=== PATIENT | female | born 1970 | race Caucasian/White ===

== ENCOUNTER 2024-02-15 11:56 | Observation (INO) ==
[2024-02-15] MEDS: NS 1,000 ML IV 1,000 ML IV SCH (15:20)
[2024-02-15 15:48] LABS: BASOPHILS # (AUTO) 0.1 X10^3/uL (0.0-0.1); EOSINOPHILS # (AUTO) 0.1 x10^3/uL (0.0-0.2); MONOCYTES # (AUTO) 0.4 x10^3/uL (0.3-0.8)
[2024-02-15 15:52] LABS: BASOPHILS % (AUTO) 0.9 % (0.2-1.0); EOSINOPHILS % (AUTO) 0.5 % (0.9-2.9); LYMPHOCYTES # (AUTO) 1.5 X10^3/uL (1.3-2.9); LYMPHOCYTES % (AUTO) 15.9 % (21.0-51.0); MEAN CORPUSCULAR HGB CONC 32.3 g/dL (33.0-35.0); MEAN CORPUSCULAR VOLUME 77.2 fL (80.0-100.0); MEAN PLATELET VOLUME 6.6 fL (7.4-11.0); MONOCYTES % (AUTO) 4.2 % (0.0-13.0); NEUTROPHILS # (AUTO) 7.3 x10^3/uL (2.2-4.8); NEUTROPHILS % (AUTO) 78.5 % (42.0-75.0); PLATELET COUNT 398 X10^3/uL (150.0-450.0); RED BLOOD COUNT 2.47 X10^6/uL (3.5-5.4); RED CELL DISTRIBUTION WIDTH 20.8 % (11.6-16.5); WHITE BLOOD COUNT 9.3 X10^3/uL (3.6-10.0)
[2024-02-15 16:03] LABS: HEMATOCRIT 19.1 % (36.0-47.0)
[2024-02-15 16:12] LABS: ALANINE AMINOTRANSFERASE 11 Units/L (12-78); ALBUMIN 2.3 g/dL (3.4-5.0); ALKALINE PHOSPHATASE 112 Units/L (46-116); BLOOD UREA NITROGEN 7 mg/dL (7-18); CALCIUM 7.7 mg/dL (8.5-10.1); CARBON DIOXIDE 30.8 mmol/L (21-32); CHLORIDE 95 mmol/L (98-107); COR CA(FOR HYPOALB) 9.1 mg/dL (8.5-10.1); FREE T4 (FREE THYROXINE) 0.46 ng/dL (0.76-1.46); GLUCOSE 98 mg/dL (65-99); SODIUM 132 mmol/L (136-145); TOTAL PROTEIN 5.8 g/dL (6.4-8.2); TSH (3RD GENERATION) 91.669 uIU/mL (0.358-3.74); eGFR NON BLACK RACES > 60 (>60)
[2024-02-15 16:19] LABS: POTASSIUM 2.9 mmol/L (3.5-5.1)
[2024-02-15 16:27] LABS: HEMOGLOBIN 6.2 g/dL (12.0-16.0)
[2024-02-15 16:28] LABS: ANISOCYTOSIS 1+; HYPOCHROMASIA SLIGHT; MICROCYTOSIS SLIGHT; PLATELET MORPHOLOGY COMMENT NORMAL (NORMAL)
[2024-02-15 16:29] LABS: STOMATOCYTES PRESENT
[2024-02-15 16:36] LABS: IRON 15 ug/dL (50-175)
[2024-02-15] MEDS ORDERED: PROVENTIL NEB TX 0.083% 2.5MG/ 3ML NEB PRN (16:37)
[2024-02-15 16:46] LABS: ASPARTATE AMINO TRANSFERASE 13 Units/L (15-37)
[2024-02-15] MEDS ORDERED: CONSULT PHARMACY - POTASSIUM & MAGNESIUM XX SCH (17:00)
[2024-02-15 17:21] VITALS: BMI 20.3
[2024-02-15] MEDS: NS 500 ML IV 500 ML IV ONE ×2 (18:45→23:00)
[2024-02-15] MEDS: MAG-OX TAB PO SCH (20:28)
[2024-02-15] MEDS: ELAVIL PO SCH (20:28)
[2024-02-15] MEDS: COLACE CAP 100 MG PO SCH (20:28)
[2024-02-15] MEDS: KLOR-CON PO SCH (20:29)
[2024-02-15] MEDS: ROXICODONE TAB 15 MG PO PRN (22:13)
[2024-02-15] MEDS: ALPRAZOLAM ODT PO PRN (22:14)
[2024-02-15] MEDS: PROTONIX TAB 40 MG PO SCH (22:14)
[2024-02-15] MEDS: NEURONTIN CAP 300 MG PO SCH (22:14)
[2024-02-16 02:45] LABS: HEMATOCRIT 26.3 % (36.0-47.0); HEMOGLOBIN 8.6 g/dL (12.0-16.0)
[2024-02-16 05:06] LABS: BASOPHILS # (AUTO) 0.1 X10^3/uL (0.0-0.1); BASOPHILS % (AUTO) 0.8 % (0.2-1.0); EOSINOPHILS # (AUTO) 0.1 x10^3/uL (0.0-0.2); EOSINOPHILS % (AUTO) 1.1 % (0.9-2.9); HEMATOCRIT 26.7 % (36.0-47.0); HEMOGLOBIN 8.7 g/dL (12.0-16.0); LYMPHOCYTES # (AUTO) 1.3 X10^3/uL (1.3-2.9); MEAN CORPUSCULAR HEMOGLOBIN 26.7 pg (27.0-34.0); MEAN CORPUSCULAR HGB CONC 32.5 g/dL (33.0-35.0); MEAN CORPUSCULAR VOLUME 82.1 fL (80.0-100.0); MEAN PLATELET VOLUME 6.7 fL (7.4-11.0); MONOCYTES # (AUTO) 0.6 x10^3/uL (0.3-0.8); MONOCYTES % (AUTO) 8.1 % (0.0-13.0); NEUTROPHILS # (AUTO) 5.1 x10^3/uL (2.2-4.8); PLATELET COUNT 321 X10^3/uL (150.0-450.0); RED BLOOD COUNT 3.26 X10^6/uL (3.5-5.4); RED CELL DISTRIBUTION WIDTH 19.4 % (11.6-16.5); WHITE BLOOD COUNT 7.1 X10^3/uL (3.6-10.0)
[2024-02-16 05:22] LABS: ALANINE AMINOTRANSFERASE 12 Units/L (12-78); ALBUMIN 1.9 g/dL (3.4-5.0); ALKALINE PHOSPHATASE 99 Units/L (46-116); BLOOD UREA NITROGEN 4 mg/dL (7-18); CALCIUM 7.1 mg/dL (8.5-10.1); CARBON DIOXIDE 28.6 mmol/L (21-32); CHLORIDE 101 mmol/L (98-107); COR CA(FOR HYPOALB) 8.8 mg/dL (8.5-10.1); CREATININE 0.59 mg/dL (0.55-1.02); GLUCOSE 83 mg/dL (65-99); MAGNESIUM 1.7 mg/dL (2.0-2.9); POTASSIUM 3.4 mmol/L (3.5-5.1); SODIUM 135 mmol/L (136-145); TOTAL PROTEIN 4.9 g/dL (6.4-8.2); eGFR NON BLACK RACES > 60 (>60)
[2024-02-16] MEDS: SYNTHROID 175 mcg TAB PO SCH (05:31)
[2024-02-16 05:49] LABS: ASPARTATE AMINO TRANSFERASE 16 Units/L (15-37)
[2024-02-16] MEDS: ZOFRAN INJ 4 MG VIAL IVP PRN (06:17)
[2024-02-16] MEDS ORDERED: CONSULT PHARMACY - POTASSIUM & MAGNESIUM XX SCH (07:00)
--- NOTE | 2024-02-16 07:40 | RAD ---
EXAMINATION:CHEST, 1 VIEWHISTORY:SYMPTOMATIC ANEMIA, COPD; .COMPARISON STUDY:None.TECHNIQUE:A single view of the chest was obtained.FINDINGS:. Heart size is normal. No acute infiltrates. There is no pneumothorax. Hilar and mediastinal structures and bony structures are unremarkable. EKG leads overlie the chest.IMPRESSION:No acute process in the chest.THIS IS AN ELECTRONICALLY VERIFIED FINAL REPORT02/16/2024 7:34 AM - Electronically signed by Elías Rodriguez MD
[2024-02-16] MEDS ORDERED: LIORESAL PO PRN (08:20)
[2024-02-16 09:44] VITALS: BP 131/81; TEMP 97.9
[2024-02-16] MEDS: MAG-OX TAB PO SCH (09:59)
[2024-02-16] MEDS: CRESTOR TAB 10 MG PO SCH (09:59)
[2024-02-16] MEDS: K-DUR TAB 20 MEQ PO SCH (10:00)
[2024-02-16 12:17] VITALS: PULSE 83; O2SAT 100
[2024-02-16 13:18] VITALS: RESP 14
--- NOTE | 2024-02-16 15:30 | DR.H&P ---
H&P History & Physical for Day of: H&P Date: 02/15/24 Chief Complaint Chief Complaint: weakness History of Present Illness History of Present Illness: Pt is a 53-year-old female with a past medical history of hypertension, hypothyroidism, COPD (uses 2 L nasal cannula), presenting with weakness and fatigue. She reports that has been going on for the past month. She also states she has a history of anemia and that is usually when her hemoglobin is low she feels like this. Labs/imaging: WBC 9.3, hemoglobin 6.2, platelets 398, sodium 132, potassium 2.9, creatinine 0.90, glucose 98, TSH 91, free T4 0.46. Patient was admitted for symptomatic anemia. She was ordered 2 units packed red blood cells to be transfused. Will continue to trend and monitor hemoglobin. Consult general surgery-Dr Alex, order anemia panel and fecal occult. No signs of active bleeding. She also had acute hypokalemia and hypomagnesemia. Will replete potassium per protocol. Start on IV fluids normal saline at 75 mL/h. Restart home medications. Will also increase Synthroid to 175 mcg. Continue closely monitor and follow-up labs. Past Medical History Past Medical History: Anemia, COPD, Migraines, Hypertension and Hypothyroidism Past Surgical History Surgical History: Appendectomy, Cholecystectomy, Hysterectomy and Tonsillectomy Family History Family Medical History: Diabetes Mellitus, Cancer, [place], Coronary Artery Disease and Hypertension Social History Does patient currently use any type of tobacco product: Yes Have you used tobacco products in the last 12 months: Yes Type of Tobacco Use: Cigarettes Alcohol Use: None Drug Use: None Medications Home Medications: Home Medications Medication Instructions Recorded Confirmed Type alprazolam 0.5 mg tablet 0.5 mg PO TID PRN 02/15/24 02/15/24 History Allergies Allergies Allergy/AdvReac Type Severity Reaction Status Date / Time No Known Allergies Allergy Verified 02/11/24 11:39 Labs 02/16/24 04:06 02/16/24 04:06 Labs: Laboratory WBC 7.1 X10^3/uL (3.6-10.0) 02/16/24 04:06 RBC 3.26 X10^6/uL (3.5-5.4) L 02/16/24 04:06 Hgb 8.7 g/dL (12.0-16.0) L 02/16/24 04:06 Hct 26.7 % (36.0-47.0) L 02/16/24 04:06 MCV 82.1 fL (80.0-100.0) 02/16/24 04:06 MCH 26.7 pg (27.0-34.0) L 02/16/24 04:06 MCHC 32.5 g/dL (33.0-35.0) L 02/16/24 04:06 RDW 19.4 % (11.6-16.5) H 02/16/24 04:06 Plt Count 321 X10^3/uL (150.0-450.0) 02/16/24 04:06 Plt Count Comment Adequate (ADEQUATE) 02/15/24 15:37 MPV 6.7 fL (7.4-11.0) L 02/16/24 04:06 Neut % (Auto) 72.0 % (42.0-75.0) 02/16/24 04:06 Lymph % (Auto) 18.0 % (21.0-51.0) L 02/16/24 04:06 [place] % (Auto) 8.1 % (0.0-13.0) 02/16/24 04:06 Eos % (Auto) 1.1 % (0.9-2.9) 02/16/24 04:06 Baso % (Auto) 0.8 % (0.2-1.0) 02/16/24 04:06 Neut # (Auto) 5.1 x10^3/uL (2.2-4.8) H 02/16/24 04:06 Lymph # (Auto) 1.3 X10^3/uL (1.3-2.9) 02/16/24 04:06 [place] # (Auto) 0.6 x10^3/uL (0.3-0.8) 02/16/24 04:06 Eos # (Auto) 0.1 x10^3/uL (0.0-0.2) 02/16/24 04:06 Baso # (Auto) 0.1 X10^3/uL (0.0-0.1) 02/16/24 04:06 Absolute Nucleated RBC 0.1 /100WBC 02/16/24 04:06 Plt Morphology Comment Normal (NORMAL) 02/15/24 15:37 RBC Morphology Abnormal (NORMAL) A 02/15/24 15:37 Hypochromasia Slight A 02/15/24 15:37 Anisocytosis 1+ A 02/15/24 15:37 Microcytosis Slight A 02/15/24 15:37 Stomatocytes Present 02/15/24 15:37 Sodium 135 mmol/L (136-145) L 02/16/24 04:06 Corrected Sodium TNP 02/16/24 04:06 Potassium 3.4 mmol/L (3.5-5.1) L 02/16/24 04:06 Chloride 101 mmol/L (98-107) 02/16/24 04:06 Carbon Dioxide 28.6 mmol/L (21-32) 02/16/24 04:06 BUN 4 mg/dL (7-18) L 02/16/24 04:06 Creatinine 0.59 mg/dL (0.55-1.02) 02/16/24 04:06 Est GFR (MDRD) Af Amer > 60 (>60) 02/16/24 04:06 Est GFR (MDRD) Non-Af > 60 (>60) 02/16/24 04:06 Glucose 83 mg/dL (65-99) 02/16/24 04:06 Calcium 7.1 mg/dL (8.5-10.1) L 02/16/24 04:06 Corrected Calcium 8.8 mg/dL (8.5-10.1) 02/16/24 04:06 Magnesium 1.7 mg/dL (2.0-2.9) L 02/16/24 04:06 Iron 15 ug/dL (50-175) L 02/15/24 15:37 Transferrin 276 mg/dL (202-364) 02/15/24 15:37 Ferritin 9 ng/mL (8-252) 02/15/24 15:37 Total Bilirubin 0.30 mg/dL (0.2-1.0) 02/16/24 04:06 AST 16 Units/L (15-37) 02/16/24 04:06 ALT 12 Units/L (12-78) 02/16/24 04:06 Alkaline Phosphatase 99 Units/L (46-116) 02/16/24 04:06 Total Protein 4.9 g/dL (6.4-8.2) L 02/16/24 04:06 Albumin 1.9 g/dL (3.4-5.0) L 02/16/24 04:06 Globulin 3.0 g/dL (2.5-4.5) 02/16/24 04:06 Albumin/Globulin Ratio 0.6 Ratio (1.1-2.1) L 02/16/24 04:06 Vitamin B12 337 pg/mL (193-986) 02/15/24 15:37 Free T4 0.46 ng/dL (0.76-1.46) L 02/15/24 15:37 TSH 3rd Generation 91.669 uIU/mL (0.358-3.74) H 02/15/24 15:37 Blood Type O POSITIVE 02/15/24 16:08 Blood Type O POSITIVE 02/15/24 16:08 Antibody Screen Negative 02/15/24 16:08 Crossmatch See Detail 02/15/24 16:08 Review of Systems Constitutional: Weakness Eyes: No Symptoms Reported ENT: No Symptoms Reported Respiratory: Shortness of Breath (chronic) Cardiovascular: No Symptoms Reported Gastrointestinal: No Symptoms Reported Genitourinary: No Symptoms Reported Musculoskeletal: No Symptoms Reported Skin: No Symptoms Reported Neurological: No Symptoms Reported Physical Exam Vital Signs: Vital Signs Temperature 97.9 F Temperature 97.6 F Pulse Rate 100 Pulse Rate 84 Pulse Rate 86 Pulse Rate 90 Pulse Rate 91 Pulse Rate 80 Pulse Rate 76 Pulse Rate 82 Respiratory Rate 22 Respiratory Rate 24 Respiratory Rate 20 Respiratory Rate 19 Respiratory Rate 13 Respiratory Rate 13 Respiratory Rate 13 Respiratory Rate 12 Respiratory Rate 18 Blood Pressure 131/81 Blood Pressure 130/85 Blood Pressure 137/63 Blood Pressure 128/69 Blood Pressure 125/70 O2 Sat by Pulse Oximetry 99 O2 Sat by Pulse Oximetry 100 O2 Sat by Pulse Oximetry 100 O2 Sat by Pulse Oximetry 99 O2 Sat by Pulse Oximetry 98 O2 Sat by Pulse Oximetry 99 O2 Sat by Pulse Oximetry 99 O2 Sat by Pulse Oximetry 98 Oriented: Normal Eyes: Normal Ear: Normal Nose: Normal Throat: Normal Respiratory: Diminished Throughout Cardiovascular: Normal : Normal Auscultation: Bowel Sounds: Normal Palpation: Normal Tenderness: Normal Skin: Normal Musculoskeletal: Normal Psychiatric: Normal Mood Description: Calm and Appropriate Affect: Normal Speech Pattern: Clear and Appropriate Assessment/Plan (1) Symptomatic anemia: Status: Acute Plan: Transfuse 2 units packed red blood cells order anemia panel (2) Hypomagnesemia: Status: Acute (3) Hypokalemia: Status: Acute (4) Hypothyroidism: Status: Acute Review H&P Reviewed: Yes Patient was examined?: Yes
== END 2024-02-16 12:25 | disposition home or self-care (01) ==
LOC: ICU
PROVIDERS: ADMIT Family Medicine; ATTEND Family Medicine
DX: I10 Essential (primary) hypertension; D64.89 Other specified anemias; R53.1 Weakness; Z99.81 Dependence on supplemental oxygen; E87.6 Hypokalemia; R06.02 Shortness of breath; E83.42 Hypomagnesemia; J44.9 Chronic obstructive pulmonary disease, unspecified; E03.8 Other specified hypothyroidism